=== PATIENT | female | born 1995 | race Two or more races ===

== ENCOUNTER 2023-11-22 14:25 | Emergency (ER) | payer OTHER ==
[~2023-11-22] VITALS: Ht 154.9 cm; Wt 59.4 kg
[2023-11-22 16:28] LABS: HEMATOCRIT 39.5 % (36.0-45.00); HEMOGLOBIN 13.4 g/dL (12.0-15.00); MEAN CORPUSCULAR HEMOGLOBIN 30.3 pg (27.00-32.0); PLATELET COUNT 290 K/uL (150-450); RED BLOOD COUNT 4.44 M/uL (4.00-6.00); RED CELL DISTRIBUTION WIDTH 12.6 % (11.5-14.5)
[2023-11-22 16:59] LABS: PH,URINE 5.5 (5.0-8.0); URINE APPEARANCE Clear; URINE BILIRRUBIN Negative (NEGATIVE); URINE BLOOD Negative; URINE COLOR Yellow; URINE GLUCOSE Negative (NEGATIVE); URINE KETONE Negative (NEGATIVE); URINE LEUKOCYTE Negative; URINE NITRATE Negative; URINE PROTEIN Negative (NEGATIVE); URINE UROBILINOGEN 0.2 E.U./dl
[2023-11-22 17:02] LABS: URINE BACTERIA 763.2 uL (0.0-1933); URINE EPITHELIAL CELLS 6.1 uL (0.0-38.8); URINE WBC 14.8 uL (0.0-23.2)
[2023-11-22 17:06] LABS: URINE CAST 0.15 uL (0.0-1.40); URINE RBC 0.3 uL (0.0-20.8)
[2023-11-22 17:10] LABS: CALCIUM 9.3 mg/dL (8.5-10.1); CREATININE SERUM 0.9 mg/dL (0.55-1.02); GFR 74.55; POTASSIUM 3.6 mEq/L (3.5-5.1)
[2023-11-22 17:30] LABS: INR 0.97; PARTIAL THROMBOPLASTIN TIME 32.5 SECONDS (22.0-34.0); PROTHROMBIN TIME 10.6 SECONDS (9.0-11.5)
== END 2023-11-22 18:14 | disposition home or self-care (01) ==
LOC: ER 14:27
PROVIDERS: General Practice
DX: O26.899 Other specified pregnancy related conditions, unspecified trimester (principal); Z3A.01 Less than 8 weeks gestation of pregnancy; Z88.0 Allergy status to penicillin

== ENCOUNTER 2024-05-31 17:33 | Inpatient (IN) | payer OTHER ==
[~2024-05-31] VITALS: Ht 154.9 cm; Wt 73.9 kg
[2024-05-31 18:10] VITALS: BP 114/62
[2024-05-31] MEDS ORDERED: CHILDREN'S ASPI81 MG PO (18:32)
[2024-05-31] MEDS ORDERED: PRENATABS RX T1 EACH PO (18:32)
[2024-05-31] MEDS ORDERED: SODIUM CHLORIDE 0.45 % 1,000 ML IV SCH (18:45)
[2024-05-31 18:52] LABS: URINE APPEARANCE Clear; URINE BILIRRUBIN Negative (NEGATIVE); URINE BLOOD Negative; URINE COLOR Yellow; URINE GLUCOSE Negative (NEGATIVE); URINE KETONE Negative (NEGATIVE); URINE LEUKOCYTE Trace; URINE NITRATE Negative; URINE PROTEIN Negative (NEGATIVE); URINE UROBILINOGEN 0.2 E.U./dl
[2024-05-31 18:56] LABS: HEMATOCRIT 32.5 % (36.0-45.00); MEAN CELL VOLUME 88.3 fL (80.00-100.00); MEAN CORPUSCULAR HEMOGLOBIN 29.8 pg (27.00-32.0); MEAN CORPUSCULAR HGB CONC 33.8 g/dl (32.0-36.0); PLATELET COUNT 157 K/uL (150-450); RED BLOOD COUNT 3.68 M/uL (4.00-6.00); RED CELL DISTRIBUTION WIDTH 13.9 % (11.5-14.5)
[2024-05-31 18:56] LABS: URINE BACTERIA 582.5 uL (0.0-1933); URINE EPITHELIAL CELLS 7.4 uL (0.0-38.8); URINE WBC 18.1 uL (0.0-23.2)
[2024-05-31 19:08] LABS: URINE CAST 0.29 uL (0.0-1.40); URINE RBC 0.1 uL (0.0-20.8)
[2024-05-31 19:27] LABS: INR < 0.93; PARTIAL THROMBOPLASTIN TIME 28.8 SECONDS (22.0-34.0); PROTHROMBIN TIME 10.2 SECONDS (9.0-11.5)
[2024-05-31 19:32] LABS: ALBUMIN 2.2 gm/dL (3.4-5.0); BILIRUBIN TOTAL 0.29 mg/dL (0.3-1.2); CALCIUM 8.1 mg/dL (8.5-10.1); CREATININE SERUM 0.75 mg/dL (0.55-1.02); GFR 92.01; POTASSIUM 3.69 mEq/L (3.5-5.1); TOTAL PROTEIN 5.2 gm/dL (6.4-8.2)
[2024-05-31 23:20] VITALS: BP 114/67
[2024-05-31] MEDS ORDERED: ACETAMINOPHEN 500 MG GEL..CAP PO ONE (23:45)
[2024-06-01 04:00] VITALS: BP 95/55
[2024-06-01 06:13] VITALS: BP 102/64; O2SAT 98
[2024-06-01 11:00] VITALS: BP 107/69; O2SAT 97
[2024-06-01] MEDS ORDERED: BETAMETHASONE ACETATE,SOD PHOS 30 MG/5 ML ML IM ONE (11:10)
[2024-06-01 15:25] VITALS: BP 95/52
[2024-06-01 19:30] VITALS: BP 99/63
[2024-06-01] MEDS ORDERED: ACETAMINOPHEN 500 MG GEL..CAP PO ONE (20:29)
[2024-06-01] MEDS ORDERED: ACETAMINOPHEN 500 MG GEL..CAP PO PRN (20:45)
[2024-06-01 23:19] VITALS: BP 100/58
[2024-06-01] MEDS ORDERED: NIFEDIPINE 10 MG CAPSULE PO ONE (23:52)
[2024-06-02] MEDS ORDERED: NIFEDIPINE 10 MG CAPSULE PO ONE ×2 (01:15→04:30)
[2024-06-02 03:30] VITALS: BP 115/78; BP 120/77
[2024-06-02 06:31] VITALS: BP 103/67; O2SAT 100
[2024-06-02] MEDS ORDERED: CITRIC ACID/SODIUM CITRATE 30 ML BLIST.PACK PO NR (11:00)
[2024-06-02] MEDS ORDERED: FAMOTIDINE/PF 20 MG/2 ML VIAL IV SCH (11:06)
[2024-06-02] MEDS ORDERED: BETAMETHASONE ACETATE,SOD PHOS 30 MG/5 ML ML IM ONE (11:10)
[2024-06-02 11:32] VITALS: BP 112/75
[2024-06-02] MEDS ORDERED: PROMETHAZINE HCL 25 MG/ML AMPUL IV PRN (13:45)
[2024-06-02] MEDS ORDERED: CYCLOBENZAPRINE HCL 5 MG TABLET PO PRN (13:45)
[2024-06-02 15:55] VITALS: BP 105/63
[2024-06-02 16:22] LABS: URINE APPEARANCE Clear; URINE BACTERIA 398.8 uL (0.0-1933); URINE BILIRRUBIN Negative (NEGATIVE); URINE BLOOD Negative; URINE COLOR Yellow; URINE EPITHELIAL CELLS 5.8 uL (0.0-38.8); URINE GLUCOSE Negative (NEGATIVE); URINE LEUKOCYTE Trace; URINE NITRATE Negative; URINE PROTEIN Negative (NEGATIVE); URINE UROBILINOGEN 0.2 E.U./dl; URINE WBC 12.9 uL (0.0-23.2)
[2024-06-02 16:35] LABS: URINE KETONE 40 (NEGATIVE)
[2024-06-02 20:11] VITALS: BP 103/70
[2024-06-02] MEDS ORDERED: TERBUTALINE SULFATE 1 MG/ML AMPUL ONE (21:09)
[2024-06-02] MEDS ORDERED: CEFAZOLIN SODIUM 1,000 MG VIAL IV SCH (21:15)
[2024-06-02] MEDS ORDERED: TERBUTALINE SULFATE 1 MG/ML AMPUL SUBCUTANEO ONE (21:15)
[2024-06-02] MEDS ORDERED: CEFAZOLIN SODIUM 1,000 MG VIAL ONE (22:31)
[2024-06-02] MEDS ORDERED: ERYTHROMYCIN BASE OPHT 1GM EACH TUBE OP ONE (22:31)
[2024-06-02] MEDS ORDERED: OXYTOCIN 10 UNITS/ML VIAL ONE (22:31)
[2024-06-03] MEDS ORDERED: KETOROLAC TROMETHAMINE 60 MG VIAL IM STA (00:10)
[2024-06-03] MEDS ORDERED: OXYTOCIN 1,000 ML IV SCH (00:15)
[2024-06-03] MEDS ORDERED: MORPHINE SULFATE 4 MG/ML VIAL IV PRN (00:15)
[2024-06-03] MEDS ORDERED: RINGERS SOLUTION,LACTATED 1,000 ML IV SCH (00:15)
[2024-06-03] MEDS ORDERED: MORPHINE SULFATE 4 MG/ML VIAL IV ONE ×2 (01:05→01:35)
[2024-06-03] MEDS ORDERED: OXYTOCIN 10 UNITS/ML VIAL ONE (02:09)
[2024-06-03] MEDS ORDERED: KETOROLAC TROMETHAMINE 60 MG VIAL IM ONE (03:03)
[2024-06-03 03:29] VITALS: BP 125/73
[2024-06-03 03:56] LABS: MEAN CELL VOLUME 88.6 fL (80.00-100.00); MEAN CORPUSCULAR HEMOGLOBIN 29.6 pg (27.00-32.0); MEAN CORPUSCULAR HGB CONC 33.4 g/dl (32.0-36.0); PLATELET COUNT 150 K/uL (150-450); RED BLOOD COUNT 3.27 M/uL (4.00-6.00); RED CELL DISTRIBUTION WIDTH 14.1 % (11.5-14.5)
[2024-06-03 04:10] LABS: HEMOGLOBIN 9.7 g/dL (12.0-15.00)
[2024-06-03] MEDS ORDERED: MORPHINE SULFATE 4 MG/ML CARTRIDGE IV PRN (07:00)
[2024-06-03 08:00] VITALS: BP 109/66
[2024-06-03] MEDS ORDERED: OxyCODONE HCL/APAP UD (PERCOCET) PO PRN (09:00)
[2024-06-03 17:45] VITALS: BP 100/58
[2024-06-03 20:25] VITALS: BP 98/56
[2024-06-03 23:44] VITALS: BP 94/58
[2024-06-04 08:00] VITALS: BP 116/71
[2024-06-04] MEDS ORDERED: IBUprofen 800 MG TABLET PO PRN (11:30)
[2024-06-04 16:35] VITALS: BP 106/68
[2024-06-04 22:30] VITALS: BP 108/70
[2024-06-05 02:11] VITALS: BP 113/69
[2024-06-05 06:39] VITALS: BP 103/66
[2024-06-05 09:00] VITALS: BP 107/69
[2024-06-05 13:00] VITALS: BP 114/79
== END 2024-06-05 18:05 | disposition home or self-care (01) | DRG 783 ==
LOC: OBS/DEL 17:33 → LDR 06-01 11:15 → O/R 06-02 22:49 → OB/GYN 06-03 01:17
PROVIDERS: ADMIT Obstetrics & Gynecology; ATTEND Obstetrics & Gynecology
PROC: BY4GZZZ Ultrasonography of Third Trimester, Multiple Gestation (ICD-10-PCS; 2024-06-01)
PROC: BU4CZZZ Ultrasonography of Uterus and Ovaries (ICD-10-PCS; 2024-06-01)
PROC: BY47ZZZ Ultrasonography of Fetal Umbilical Cord (ICD-10-PCS; 2024-06-01)
PROC: 4A1HXCZ Monitoring of Products of Conception, Cardiac Rate, External Approach (ICD-10-PCS; 2024-06-01)
PROC: 10D00Z1 Extraction of Products of Conception, Low, Open Approach (ICD-10-PCS; principal; 2024-06-03)
PROC: 0UB70ZZ Excision of Bilateral Fallopian Tubes, Open Approach (ICD-10-PCS; 2024-06-03)
DX: O36.5932 Maternal care for other known or suspected poor fetal growth, third trimester, fetus 2 (principal); O60.14X2 Preterm labor third trimester with preterm delivery third trimester, fetus 2; O30.033 Twin pregnancy, monochorionic/diamniotic, third trimester; O26.843 Uterine size-date discrepancy, third trimester; O36.8332 Maternal care for abnormalities of the fetal heart rate or rhythm, third trimester, fetus 2; O32.1XX1 Maternal care for breech presentation, fetus 1; O36.8132 Decreased fetal movements, third trimester, fetus 2; Z3A.33 33 weeks gestation of pregnancy; Z37.2 Twins, both liveborn; Z30.2 Encounter for sterilization